=== PATIENT | male | born 2000 | race Caucasian/White ===

== ENCOUNTER 2023-11-16 10:07 | Emergency (ER) | payer OTHER ==
[~2023-11-16] VITALS: Ht 188 cm; Wt 100.0 kg
[2023-11-16 10:14] VITALS: BP 155/80; TEMP 98.4
[2023-11-16] MEDS ORDERED: NORCO 325 MG-51 TAB PO (11:16)
[2023-11-16 11:20] VITALS: PULSE 94
== END 2023-11-16 11:20 | disposition home or self-care (01) ==
LOC: COL.ER 10:07
DX: S42.022A Displaced fracture of shaft of left clavicle, initial encounter for closed fracture (principal); W22.8XXA Striking against or struck by other objects, initial encounter; Y93.61 Activity, american tackle football